=== PATIENT | female | born 1965 ===

== ENCOUNTER 2021-08-29 08:00 | Inpatient (IN) | payer OTHER ==
[~2021-08-29] VITALS: Ht 157.5 cm; Wt 62.1 kg
[2021-08-29] MEDS ORDERED: WELLBUTRIN SR100 MG PO (09:08)
[2021-08-29] MEDS ORDERED: TOPROL XL50 M1 PO (09:08)
[2021-08-29] MEDS ORDERED: CLONAZEPAM0.5 MG PO (09:08)
[2021-08-29] MEDS ORDERED: LIPITOR20 MG PO (09:09)
[2021-08-29] MEDS ORDERED: MELATONIN10 MG PO (09:09)
[2021-08-29] MEDS ORDERED: SEROQUEL400 MG PO (09:09)
[2021-08-29] MEDS ORDERED: RESTORIL30 M1 PO (09:09)
[2021-09-03] MEDS ORDERED: NEURONTIN800 MG PO (07:19)
[2021-09-03] MEDS ORDERED: ACETAMINOPHEN-1 EAC2 PO (07:19)
[2021-09-03] MEDS ORDERED: AMOX-CLAV 875-1 EACH PO (07:19)
[2021-09-03] MEDS ORDERED: MEDROLPACK PO (07:19)
[2021-09-03] MEDS ORDERED: COLACE100 MG PO (07:19)
== END 2021-09-05 16:01 | disposition home or self-care (01) | DRG 455 ==
LOC: EDSTATUS 08:00 → ADM 08:00 → PED 09-03 05:26 → O/R 09-03 05:26 → SURH 09-03 06:00 → PED 09-03 15:01
PROVIDERS: ADMIT Orthopaedic Surgery Orthopaedic Surgery of the Spine; ATTEND Orthopaedic Surgery Orthopaedic Surgery of the Spine
PROC: 0SG10J1 Fusion of 2 or more Lumbar Vertebral Joints with Synthetic Substitute, Posterior Approach, Posterior Column, Open Approach (ICD-10-PCS; 2021-09-03)
PROC: 0QB30ZZ Excision of Left Pelvic Bone, Open Approach (ICD-10-PCS; 2021-09-03)
PROC: 0ST20ZZ Resection of Lumbar Vertebral Disc, Open Approach (ICD-10-PCS; 2021-09-03)
PROC: 07DR0ZZ Extraction of Iliac Bone Marrow, Open Approach (ICD-10-PCS; 2021-09-03)
PROC: 0SG10A0 Fusion of 2 or more Lumbar Vertebral Joints with Interbody Fusion Device, Anterior Approach, Anterior Column, Open Approach (ICD-10-PCS; principal; 2021-09-03 06:00)
DX: M48.062 Spinal stenosis, lumbar region with neurogenic claudication (principal); M41.86 Other forms of scoliosis, lumbar region; M51.36 Other intervertebral disc degeneration, lumbar region; I11.9 Hypertensive heart disease without heart failure